=== PATIENT | male | born 1990 | race African-American/Black ===

== ENCOUNTER 2016-11-20 19:08 | Emergency (ER) | payer BC ==
[~2016-11-20] VITALS: Ht 175.3 cm; Wt 62.0 kg
[2016-11-20 19:09] VITALS: BP 128/76; PULSE 96; RESP 16; TEMP 98.5; O2SAT 98
== END 2016-11-20 21:53 | disposition left against medical advice (07) ==
LOC: NED 19:08
DX: R45.4 Irritability and anger (principal); Z53.21 Procedure and treatment not carried out due to patient leaving prior to being seen by health care provider
CPT/HCPCS: 99281